=== PATIENT | female | born 1945 | race Caucasian/White ===

== ENCOUNTER 2024-04-15 14:00 | Inpatient (IN) | payer BC, MEDICAID ==
[~2024-04-15] VITALS: Ht 160 cm; Wt 81.8 kg
[~2024-04-15 14:00] MED LIST: ASPI-1071 PO; ATOR20TA66 PO; BENZ-38 PO; CITA-311 PO; FERR325T28 PO; GABA300C PO; HYDR-3973 PO; LISI5TAB22 PO; METO-395 PO; OMEP20CA15 PO; OXYB10TA30 PO; OXYGEN NS; PARO-154 PO; TEMA30CA PO; TICA90TA PO; TRAZ-251 PO; [UNRECOGNIZED DRUG - CODE] PO
[2024-04-15 15:29] LABS: BASOPHILS % (AUTO) 0.1 % (0-1); EOSINOPHILS # (AUTO) 0.1 X10'3 (0-0.9); EOSINOPHILS % (AUTO) 0.7 % (0-6); HEMATOCRIT 38.5 % (35.0-45.0); HEMOGLOBIN 12.8 g/dl (12.0-16.0); LYMPHOCYTES # (AUTO) 2.1 X10'3 (1.1-4.8); LYMPHOCYTES % (AUTO) 22.3 % (21-51); MEAN CORPUSCULAR HEMOGLOBIN 30.5 PG (27.0-31.0); MEAN CORPUSCULAR HGB CONC 33.3 g/dL (33.0-36.5); MEAN CORPUSCULAR VOLUME 91.6 FL (78-98); MEAN PLATELET VOLUME 8.3 FL (7.4-10.4); MONOCYTES # (AUTO) 1.1 X10'3 (0-0.9); MONOCYTES % (AUTO) 11.5 % (2-12); NEUTROPHILS # (AUTO) 6.3 X10'3 (1.8-7.7); NEUTROPHILS % (AUTO) 65.4 % (42-75); PLATELET COUNT 107 X10'3 (140-440); RED CELL DISTRIBUTION WIDTH 15.6 % (11.5-14.5); WHITE BLOOD COUNT 9.6 X10'3 (4.5-11.0)
[2024-04-15 15:37] LABS: ALBUMIN 3.1 G/DL (3.4-5.0); ANION GAP 6 (8-16); BLOOD UREA NITROGEN 29 MG/DL (7-18); BUN/CREATININE RATIO 27.1 (10.0-20.0); CALCIUM 9.3 MG/DL (8.5-10.1); CHLORIDE 106 MMOL/L (99-107); CREATININE 1.07 MG/DL (0.40-0.90); GLUCOSE 92 MG/DL (70-104); POTASSIUM 3.9 MMOL/L (3.5-5.1); SODIUM 143 MMOL/L (135-145); TOTAL CARBON DIOXIDE 31.4 MMOL/L (24-32); eCRCL 36 ML/MIN; eGFR 50 ML/MIN
[2024-04-15] MEDS ORDERED: potassium Cl 20 mEq SR tablet PO PRN ×2 (17:45)
[2024-04-15] MEDS ORDERED: acetaminophen 325mg tablet PO PRN (17:45)
[2024-04-15] MEDS ORDERED: magnesium sulf-water 2g/50mL 50 ML IV PRN (17:45)
[2024-04-15] MEDS ORDERED: potassium Cl 40MEQ/1/2NS 520ml 520 ML IV PRN (17:45)
[2024-04-15] MEDS ORDERED: magnesium sulf-water 4G/100mL 100 ML IV PRN (17:45)
[2024-04-15] MEDS ORDERED: morphine 2 MG/ML inj. syringe IV PRN ×2 (17:45)
[2024-04-15] MEDS ORDERED: magnesium Cl slow-release 64mg tablet PO PRN (17:45)
[2024-04-15] MEDS ORDERED: ondansetron/PF 4mg/2ml inj IV PRN (17:45)
[2024-04-15] MEDS ORDERED: benzonatate 100mg capsule PO PRN (17:50)
[2024-04-15] MEDS ORDERED: OXYB5TAB21 PO (18:10)
[2024-04-15] MEDS: normal saline 1000ml 1,000 ML IV SCH (18:17)
[2024-04-15] MEDS: aspirin 81mg, enteric-coated 1 TAB TABLET.DR PO SCH (18:17)
[2024-04-15] MEDS: atorvastatin 20mg tablet PO SCH (18:17)
[2024-04-15] MEDS: ferrous sulfate 325mg tablet PO SCH (18:17)
[2024-04-15 20:00] VITALS: BP 109/58; PULSE 65; RESP 18; TEMP 97.5; O2SAT 94
[2024-04-15] MEDS: K and/or MAG REPLACEMENT MC SCH (20:00)
[2024-04-15] MEDS: temazepam 15mg capsule PO SCH (20:08)
[2024-04-15] MEDS: traZODone 50mg tablet PO SCH (20:09)
[2024-04-15] MEDS: docusate sod 100mg capsule PO SCH (20:09)
[2024-04-15] MEDS: HYDROcodone/acetaminophen 5mg/325mg tablet PO PRN (20:10)
[2024-04-15] MEDS: CITALOpram 10mg tablet PO SCH (20:10)
[2024-04-15] MEDS: oxybutynin 5mg tablet PO SCH (20:10)
[2024-04-15] MEDS: ticagrelor 90mg tablet PO SCH (20:10)
[2024-04-15] MEDS ORDERED: non-formulary drug ([Oxygen] 2 L) NS SCH (21:00)
[2024-04-16] VITALS (9 sets, daily range): BP systolic 111–118; BP diastolic 58–67; PULSE 60–68; RESP 12–19; TEMP 97.3–99.2; O2SAT 93–99
[2024-04-16] MEDS: gabapentin 300mg capsule PO SCH ×2 (01:31→20:40)
[2024-04-16 08:06] LABS: BASOPHILS % (AUTO) 0.1 % (0-1); EOSINOPHILS # (AUTO) 0.1 X10'3 (0-0.9); EOSINOPHILS % (AUTO) 1.3 % (0-6); HEMATOCRIT 42.4 % (35.0-45.0); HEMOGLOBIN 13.6 g/dl (12.0-16.0); LYMPHOCYTES # (AUTO) 1.7 X10'3 (1.1-4.8); LYMPHOCYTES % (AUTO) 22.4 % (21-51); MEAN CORPUSCULAR HEMOGLOBIN 30.4 PG (27.0-31.0); MEAN CORPUSCULAR HGB CONC 32.1 g/dL (33.0-36.5); MEAN CORPUSCULAR VOLUME 94.5 FL (78-98); MONOCYTES % (AUTO) 12.8 % (2-12); NEUTROPHILS # (AUTO) 4.9 X10'3 (1.8-7.7); NEUTROPHILS % (AUTO) 63.4 % (42-75); PLATELET COUNT 97 X10'3 (140-440); RED BLOOD COUNT 4.49 X10'6 (4.20-5.60); RED CELL DISTRIBUTION WIDTH 16.1 % (11.5-14.5); WHITE BLOOD COUNT 7.7 X10'3 (4.5-11.0)
[2024-04-16 08:45] LABS: ALBUMIN 2.7 G/DL (3.4-5.0); ANION GAP 6 (8-16); BLOOD UREA NITROGEN 18 MG/DL (7-18); BUN/CREATININE RATIO 20.2 (10.0-20.0); CHLORIDE 112 MMOL/L (99-107); CREATININE 0.89 MG/DL (0.40-0.90); GLUCOSE 77 MG/DL (70-104); POTASSIUM 3.7 MMOL/L (3.5-5.1); SODIUM 146 MMOL/L (135-145); TOTAL CARBON DIOXIDE 27.8 MMOL/L (24-32); eCRCL 44 ML/MIN; eGFR 62 ML/MIN
[2024-04-16] MEDS: pantoprazole 40mg Tablet.DR PO SCH (09:52)
[2024-04-16] MEDS: PARoxetine 20mg tablet PO SCH (09:52)
[2024-04-16] MEDS: HYDROcodone/acetaminophen 10/325mg tab PO PRN (17:40)
[2024-04-16] MEDS: famotidine 20mg tablet PO SCH (20:39)
[2024-04-17 02:00] VITALS: BP 143/82; PULSE 69; RESP 12; TEMP 97.3; O2SAT 97
[2024-04-17 06:00] VITALS: BP 136/73; PULSE 73; RESP 18; TEMP 97.4; O2SAT 92
[2024-04-17 06:34] LABS: BASOPHILS % (AUTO) 0.5 % (0-1); EOSINOPHILS # (AUTO) 0.2 X10'3 (0-0.9); EOSINOPHILS % (AUTO) 1.5 % (0-6); HEMOGLOBIN 14.4 g/dl (12.0-16.0); LYMPHOCYTES # (AUTO) 2.5 X10'3 (1.1-4.8); MEAN CORPUSCULAR HEMOGLOBIN 30.3 PG (27.0-31.0); MEAN CORPUSCULAR HGB CONC 32.7 g/dL (33.0-36.5); MEAN CORPUSCULAR VOLUME 92.9 FL (78-98); MEAN PLATELET VOLUME 8.1 FL (7.4-10.4); MONOCYTES # (AUTO) 1.2 X10'3 (0-0.9); MONOCYTES % (AUTO) 11.1 % (2-12); NEUTROPHILS # (AUTO) 6.9 X10'3 (1.8-7.7); NEUTROPHILS % (AUTO) 63.9 % (42-75); PLATELET COUNT 158 X10'3 (140-440); RED BLOOD COUNT 4.74 X10'6 (4.20-5.60); RED CELL DISTRIBUTION WIDTH 15.7 % (11.5-14.5); WHITE BLOOD COUNT 10.7 X10'3 (4.5-11.0)
[2024-04-17 06:58] LABS: ANION GAP 7 (8-16); BLOOD UREA NITROGEN 12 MG/DL (7-18); CALCIUM 9.8 MG/DL (8.5-10.1); CHLORIDE 108 MMOL/L (99-107); CREATININE 0.86 MG/DL (0.40-0.90); GLUCOSE 101 MG/DL (70-104); SODIUM 143 MMOL/L (135-145); TOTAL CARBON DIOXIDE 28.2 MMOL/L (24-32); eCRCL 45 ML/MIN; eGFR 64 ML/MIN
[2024-04-17 07:00] LABS: POTASSIUM 3.9 MMOL/L (3.5-5.1)
[2024-04-17 08:00] VITALS: RESP 12; RESP 18; O2SAT 93; O2SAT 95
[2024-04-17 11:00] VITALS: BP 132/70; PULSE 69; RESP 18; TEMP 98.9; O2SAT 95
[2024-04-21] MEDS ORDERED: metoprolol succinate 25mg (24-HOUR) SR. Tablet PO SCH (08:00)
== END 2024-04-17 12:30 | disposition home health service (06) | DRG 920 ==
LOC: ER 14:01 → ED HOLD 17:44 → UNDOADMIN 17:44 → ED HOLD 17:46 → EDBEDREQSVC 20:41 → EDBEDREQ 20:41 → ED HOLD 22:22 → PCU 3S 22:22
PROVIDERS: ADMIT Internal Medicine; ATTEND Internal Medicine
DX: I97.610 Postprocedural hemorrhage of a circulatory system organ or structure following a cardiac catheterization (principal); D62 Acute posthemorrhagic anemia; Z66 Do not resuscitate; J44.9 Chronic obstructive pulmonary disease, unspecified; M06.9 Rheumatoid arthritis, unspecified; I25.10 Atherosclerotic heart disease of native coronary artery without angina pectoris; R32 Unspecified urinary incontinence; E78.5 Hyperlipidemia, unspecified; E11.9 Type 2 diabetes mellitus without complications; G89.29 Other chronic pain; M54.9 Dorsalgia, unspecified; Z95.9 Presence of cardiac and vascular implant and graft, unspecified; Z88.0 Allergy status to penicillin; Z88.2 Allergy status to sulfonamides; I25.2 Old myocardial infarction; Z79.82 Long term (current) use of aspirin; Z79.899 Other long term (current) drug therapy; K21.9 Gastro-esophageal reflux disease without esophagitis; I10 Essential (primary) hypertension; F32.A Depression, unspecified; R58 Hemorrhage, not elsewhere classified
CPT/HCPCS: 36415; 80048; 82948; 83735; 84484; 85025; 85610; 87081; 93005; 93926; 99285; A4615; G0378; J7030